=== PATIENT | female | born 1965 | race Caucasian/White ===

== ENCOUNTER 2019-04-19 12:19 | Emergency (ER) | payer OTHER ==
[2019-04-19] MEDS ORDERED: EPINEPHrine SYRINGE 1 MG/10 ML SYRINGE IV ONE ×8 (12:20→17:45)
[2019-04-19 12:35] LABS: CREATININE ISTAT 1.8 mg/dL (0.5-1.4); HEMOGLOBIN ISTAT 12.6 g/dL (12-15); ION CA ISTAT 1.02 mmol/L (1.13-1.32); POTASSIUM ISTAT 5.9 mmol/L (3.5-5.0)
[2019-04-19] MEDS ORDERED: cefTRIAXone IV Push 1 GM VIAL. IVP ONE (12:45)
[2019-04-19] MEDS ORDERED: IV NORMAL SALINE 1000ML BAG 1,000 ML IV ONE (12:45)
[2019-04-19] MEDS ORDERED: AZITHRMYCN 500MG IVPB FOR OMNI 250 ML IV ONE (12:45)
[2019-04-19] MEDS ORDERED: EPINEPHrine SYRINGE 1 MG/10 ML SYRINGE ONE (12:45)
[2019-04-19 13:04] LABS: BASO # 0.1 x10^3/uL (0.0-0.2); BASO % 1 % (0-3); EOS % 0 % (0-3); HEMATOCRIT 37.3 % (36.0-47.0); HEMOGLOBIN 11.5 g/dL (12.0-15.5); LYMPH # 3.1 x10^3/uL (1.0-4.8); LYMPH % 26 % (24-48); MEAN CORPUSCULAR HEMOGLOBIN 30 pg (25-35); MEAN CORPUSCULAR HGB CONC 31 g/dL (31-37); MEAN CORPUSCULAR VOLUME 97 fL (79-100); MONO # 1.1 x10^3/uL (0.0-1.1); MONO % 9 % (0-9); NEUT # 7.7 x10^3/uL (1.8-7.7); NEUT % 64 % (31-73); PLATELET COUNT 192 x10^3/uL (140-400); PROTHROMBIN TIME PATIENT 16.4 SEC (11.7-14.0); RED BLOOD COUNT 3.85 x10^6/uL (3.50-5.40); RED CELL DISTRIBUTION WIDTH 13.9 % (11.5-14.5); WHITE BLOOD COUNT 11.9 x10^3/uL (4.0-11.0)
[2019-04-19 13:11] LABS: ALBUMIN 2.8 g/dL (3.4-5.0); ALBUMIN/GLOBULIN RATIO 0.8 (1.0-1.7); CALCIUM 8.2 mg/dL (8.5-10.1); CREATININE 2.1 mg/dL (0.6-1.0); GFR 24.5; MAGNESIUM 2.8 mg/dL (1.8-2.4); TOTAL BILIRUBIN 0.7 mg/dL (0.2-1.0); TOTAL PROTEIN 6.3 g/dL (6.4-8.2)
--- NOTE | 2019-04-19 13:22 | PHYS DOC ---
Past Medical History Past Medical History: Diabetes-Type II Smoking: Cigarettes (Nonsmoker) Adult General Chief Complaint Chief Complaint: CPR/FULL ARREST HPI HPI Patient is a 54-year-old female who presents in the emergency department in cardiac arrest. According to EMS, the patient had just gone to the [facility] nearby, where she was seen, reportedly had a chest x-ray and was diagnosed with pneumonia and given a prescription for antibiotics. The patient's mother went with the patient, per mother's report, subsequently obtained. (When we called the [facility] facility for some information about the patient's visit and possible test results, during her resuscitation, they stated that the patient declined other recommended testing and all that they had done was an x-ray for the patient. According to EMS, the patient went to get her prescriptions with her mother, came home, and then collapsed upon walking in the house. EMS was called at around 11:40 AM, EMS arrived at about 11:55, and began CPR. The patient was intubated in the field, received ACLS including epinephrine via a right leg intraosseous line, and was transported to the emergency department. Upon arrival in the emergency department, with CPR in progress, the endotracheal tube was noted to be approximately 17 cm at the lips, which is likely too short, although breath sounds are diminished but present. Due to concern about dislodgement of the ETT, the patient was thus re-intubated without difficulty soon after arrival. ACLS was continued. The patient received CPR for a prolonged period of time in the emergency department. At one point her rhythm did appear to be consistent with ventricular fibrillation and she was shocked with [address] the entire CPR efforts were made to minimize the amount of time without actual chest compressions being performed, per ACLS protocol. Her endotracheal tube was suctioned but there was minimal return. The primary rhythm during her resuscitation was PE a, with QRS complexes of variable length, without gross see elevation changes noted on the monitor, although a EKG could not be performed. She did have brief return of spontaneous circulation at some point in her resuscitation, evidenced by rising end-tidal CO2 levels and palpable pulses with a more organized rhythm on the monitor, but her pulse lasted about 2 minutes, and we were unable to complete the process of obtaining an EKG before CPR had to be restarted. Bedside lab testing was obtained soon after arrival, the patient did have a potassium of 5.9 and was given 2 Amp of bicarbonate, 10 units of insulin, (her glucose was elevated as well), and 30 mL of calcium chloride, and this occurred several minutes prior to return of spontaneous circulation. The patient did not have further return of spontaneous circulation despite prolonged and maximal resuscitative efforts, amd at 1:12 PM, she was in an idioventricular rhythm, despite numerous epinephrine boluses and an epinephrine drip, and didn't bedside ultrasound showed no cardiac activity and she was declared at 1:12 PM. Patient's bedside troponin was noted to be elevated. However she did not have a pulse long enough to obtain an EKG. Differential diagnosis as a cause for her , includes acute coronary syndrome, hypoxia/pneumonia related complications, arrhythmia, or others. Her elevated troponin does raise the possibility of a coronary event, although given her cardiac arrest this could be secondary to her arrest. Review of Systems Review of Systems Unable to obtain secondary to patient condition Current Medications Current Medications Current Medications Medications (Trade) Dose Ordered Sig/Sincere Start Time Stop Time Status Last Admin Dose Admin Azithromycin 250 ml @ 250 mls/hr 1X ONCE 04/19/19 12:45 04/19/19 13:44 DC Ceftriaxone Sodium (Rocephin) 1 gm 1X ONCE 04/19/19 12:45 04/19/19 12:47 DC Epinephrine HCl 4 mg/Sodium Chloride 254 ml @ 38.02 mls/ hr CONT PRN 04/19/19 12:45 UNV Sodium Chloride 1,000 ml @ 1,000 mls/hr 1X ONCE 04/19/19 12:45 04/19/19 13:44 DC Allergies Allergies Allergies Coded Allergies Type Severity Reaction Last Updated Verified Unable to Assess 04/19/19 No Physical Exam Physical Exam PHYSICAL EXAM: CONSTITUTIONAL: Well developed, well nourished HEAD: normocephalic, atraumatic EENT: Pupils are 8 mm and nonreactive NECK: Supple, non-tender; no meningismus. LUNGS: Lungs are clear with assisted ventilation. There is no spontaneous respiration HEART: Heart sounds are absent. There is a pulse with CPR. CHEST: No deformity; non-tender ABDOMEN: The abdomen is soft, and non-tender, no masses or bruits. EXTREM: Normal ROM; no deformity, no calf tenderness. Normal pulses palpable in all extremities. There is mild bilateral pedal edema. SKIN: No rash; no diaphoresis NEURO: Patient is unresponsive Current Patient Data Lab Values Laboratory Tests Test 04/19/19 12:24 04/19/19 12:31 04/19/19 12:32 04/19/19 12:37 White Blood Count 11.9 x10^3/uL (4.0-11.0) H Red Blood Count 3.85 x10^6/uL (3.50-5.40) Hemoglobin 11.5 g/dL (12.0-15.5) L Hematocrit 37.3 % (36.0-47.0) Mean Corpuscular Volume 97 fL (79-100) Mean Corpuscular Hemoglobin 30 pg (25-35) Mean Corpuscular Hemoglobin Concent 31 g/dL (31-37) Red Cell Distribution Width 13.9 % (11.5-14.5) Platelet Count 192 x10^3/uL (140-400) Neutrophils (%) (Auto) 64 % (31-73) Lymphocytes (%) (Auto) 26 % (24-48) Monocytes (%) (Auto) 9 % (0-9) Eosinophils (%) (Auto) 0 % (0-3) Basophils (%) (Auto) 1 % (0-3) Neutrophils # (Auto) 7.7 x10^3/uL (1.8-7.7) Lymphocytes # (Auto) 3.1 x10^3/uL (1.0-4.8) Monocytes # (Auto) 1.1 x10^3/uL (0.0-1.1) Eosinophils # (Auto) 0.0 x10^3/uL (0.0-0.7) Basophils # (Auto) 0.1 x10^3/uL (0.0-0.2) Prothrombin Time 16.4 SEC (11.7-14.0) H Prothrombin Time INR 1.4 (0.8-1.1) H Sodium Level 131 mmol/L (136-145) L Potassium Level 6.0 mmol/L (3.5-5.1) H Chloride Level 95 mmol/L (98-107) L Carbon Dioxide Level 15 mmol/L (21-32) L Anion Gap 21 (6-14) H 17 mmol/L (6-14) H Blood Urea Nitrogen 51 mg/dL (7-20) H Creatinine 2.1 mg/dL (0.6-1.0) H Estimated GFR (Cockcroft-Gault) 24.5 BUN/Creatinine Ratio 24 (6-20) H Glucose Level 463 mg/dL (70-99) H 442 mg/dL (70-99) H Calcium Level 8.2 mg/dL (8.5-10.1) L Magnesium Level 2.8 mg/dL (1.8-2.4) H Total Bilirubin 0.7 mg/dL (0.2-1.0) Aspartate Amino Transferase (AST) 532 U/L (15-37) H Alanine Aminotransferase (ALT) 233 U/L (14-59) H Alkaline Phosphatase 112 U/L (46-116) Troponin I Quantitative 71.037 ng/mL (0.000-0.055) FG-Nid-H-Type Natriuretic Peptide 20445 pg/mL (0-124) H Total Protein 6.3 g/dL (6.4-8.2) L Albumin 2.8 g/dL (3.4-5.0) L Albumin/Globulin Ratio 0.8 (1.0-1.7) L POC Hemoglobin 12.6 g/dL (12-15) POC Hematocrit 37 % (36-40) POC Sodium 127 mmol/L (135-145) L POC Potassium 5.9 mmol/L (3.5-5.0) H POC Chloride 101 mmol/L (98-110) POC Total CO2 16 mmol/L (23-32) L POC Blood Urea Nitrogen 58 mg/dL (8-26) H POC Creatinine 1.8 mg/dL (0.5-1.4) H POC Ionized Calcium (Nelda) 1.02 mmol/L (1.13-1.32) L POC Troponin I 20.65 ng/ml (<0.08) Glucose (Fingerstick) 443 mg/dL (70-99) H Laboratory Tests 04/19/19 12:24 Laboratory Tests 04/19/19 12:24 04/19/19 12:31 EKG EKG [] Radiology/Procedures Radiology/Procedures [] Course & Med Decision Making Course & Med Decision Making CRITICAL CARE TIME: 60 Minutes, excluding any procedures and care of other patients. INTUBATION PROCEDURE NOTE: Using a 3 Mac blade, a 7.5 cuffed endotracheal tube was inserted into the trachea under direct visualization without any difficulty, bilateral breath sounds were present, there was end-tidal CO2 detected, there were no breath sounds over the stomach, the tube was secured at 22 cm at the ps. Chest x-ray is unable to be obtained due to the patient condition. 1:30 PM: I spoke with Dr. Shepard, who was agreeable to signing the certificate if needed. 2:10 PM: The retail loan originator was called to notify him of the patient's . Dragon Disclaimer Dragon Disclaimer This electronic medical record was generated, in whole or in part, using a voice recognition dictation system. Departure Departure Impression: Primary Impression: Cardiac arrest Disposition: 20 Condition: Referrals: REBECA SHEPARD MD (PCP) GRUPO GREER MD Apr 19, 2019 13:22
[2019-04-19] MEDS ORDERED: SODIUM BICARB ADULT 8.4% 50 MEQ/50 ML DISP.SYRIN. IV ONE (17:45)
[2019-04-19] MEDS ORDERED: INSULIN REGULAR 100 UNIT/ML 3ML VIAL. IV ONE (17:45)
[2019-04-19] MEDS ORDERED: CALCIUM GLUCONATE 1,000 MG/10 ML VIAL. IVP ONE (17:45)
== END 2019-04-19 17:44 | disposition expired ==
LOC: ER 12:19
DX: I46.9 Cardiac arrest, cause unspecified (principal); R55 Syncope and collapse; E11.9 Type 2 diabetes mellitus without complications
CPT/HCPCS: 31500; 36415; 80047; 80053; 82962; 83735; 83880; 84484; 85025; 85610; 92950; 96360; 99291; J0171; J0610; J1815; J7030; J7050